=== PATIENT | male | born 1970 | race Caucasian/White ===

== ENCOUNTER 2019-03-12 09:32 | Emergency (ER) | payer MEDICAID ==
[~2019-03-12] VITALS: Ht 180.3 cm; Wt 95.5 kg
[2019-03-12 09:47] VITALS: Ht 180.3 cm; Wt 95.5 kg
[2019-03-12 10:29] LABS: APPEARANCE CLEAR (CLEAR); BACTERIA FEW /hpf (NONE SEEN); BILIRUBIN NEGATIVE (NEGATIVE); COLOR STRAW (YELLOW); EPITHELIAL CELLS OCC /hpf (0-5); GLUCOSE NEGATIVE (NEGATIVE); KETONE NEGATIVE (NEGATIVE); NITRITE NEGATIVE (NEGATIVE); PROTEIN NEGATIVE (NEGATIVE); UROBILINOGEN NORMAL (NORMAL); WHITE CELLS - URINE OCC /hpf (0-5)
[2019-03-12 10:30] LABS: MUCUS <1+ /lpf (NONE SEEN)
[2019-03-12 10:39] LABS: BASOPHILS 0.3 % (0-2); EOSINOPHILS 1.8 % (0-7); HEMATOCRIT 44.3 % (42.0-54.0); HEMOGLOBIN 15.1 g/dL (13.5-17.5); IMMATURE GRANULOCYTES 0.4 % (0-5); LYMPHOCYTES 24.8 % (15-50); MCH 29.7 pg (26.0-34.0); MCHC 34.1 g/dL (31.0-37.0); MEAN PLATELET VOLUME 10.3 fL (7.4-10.4); MONOCYTES 7.5 % (2-11); NEUTROPHILS 65.2 % (40-80); PLATELET COUNT 195 10x3/uL (130-400); RBC 5.09 10x6/uL (4.20-6.10); RDW 15.2 % (11.5-14.5); WBC 9.6 10x3/uL (4.8-10.8)
[2019-03-12 10:53] LABS: ALBUMIN 3.7 g/dL (3.4-5.0); ALKALINE PHOSPHATASE 50 U/L (46-116); ALT (SGPT) 25 U/L (10-68); AMYLASE - SERUM 73 U/L (25-115); CALC OSMOLALITY 278 mosm/kg (275-300); CALCIUM 8.6 mg/dL (8.5-10.1); CARBON DIOXIDE 27.2 mmol/L (21.0-32.0); CHLORIDE - SERUM 105 mmol/L (98-107); CREATININE - SERUM 0.8 mg/dL (0.6-1.3); GLUCOSE 99 mg/dL (74-106); LIPASE 143 U/L (73-393); POTASSIUM - SERUM 4.3 mmol/L (3.5-5.1); PROTEIN - SERUM 7.2 g/dL (6.4-8.2); SODIUM 139 mmol/L (136-145); UREA NITROGEN 16 mg/dL (7-18); eGFR NON AFRICAN AMERICAN > 90 mL/min (90-120)
[2019-03-12] MEDS ORDERED: ZOFRAN8 MG PO (12:26)
[2019-03-12] MEDS ORDERED: TORADOL10 MG PO (12:26)
[2019-03-12 12:37] VITALS: BP 141/95
== END 2019-03-12 12:37 | disposition home or self-care (01) ==
LOC: D.ER 09:32
PROVIDERS: Emergency Medicine
DX: R10.31 Right lower quadrant pain (principal)